=== PATIENT | female | born 1965 | race Two or more races ===

== ENCOUNTER → 2024-11-27 12:04 | Outpatient (AMB) | payer OTHER, SELFPAY ==
--- NOTE | 2024-11-27 12:34 | A.OFFVIS_ITS ---
VS Expanded 11/27/24 12:35 12/02/24 21:59 Height 5 ft 3 in 5 ft 3 in Weight 162 lb 4.163 oz 162 lb BMI 28.7 28.7 Intake Visit Reasons: Hypercholesterolemia Allergies oxycodone Adverse Reaction (Unknown, Verified 12/03/24 08:50) Unknown vicodin Adverse Reaction (Uncoded 12/03/24 08:50) Unknown Medication List - Last Reconciled 12/03/[address], LDN aspirin 81 mg PO DAILY cyanocobalamin (vitamin B-12) 100 mcg PO DAILY levothyroxine 75 mcg PO DAILY trazodone 50 mg PO BEDTIME PRN Nutrition Presentation Details: Pt presents for MNT for hypercholesterolemia Pt reports lack of meal routine, however working on reducing on high fat foods Pt reports allergic reaction to walnuts/pecans BS Monitoring Most Recent Diabetes Results: No Data to Display CXL-Sonjdlb-PuMichael Equation Height: 5 ft 3 in Weight: 162 lb Resting Metabolic Rate: 1278.01 Calculated Activity Level: Sedentary Calories Needed to Maintain Weight: 1533.61 Diagnosis Nutrition problem #1: altered nutrition labs As related to (etiology) #1: diagnosis As evidenced by (sign/symptom) #1: knowledge deficit of diet Assessment & Plan Assessment & Plan (1) Hypercholesteremia: Code(s): E78.00 - Pure hypercholesterolemia, unspecified Category: Medical Plan: Wt: 74 Kg ( 12/21 ) Est kcal needs as per MSJ: 1500 (40% carb, 30% protein/fat) Est fluid needs as per 25-30 ml/d: 2200 Est prot per day as per 1 g/kg bw: 70 Recommend fiber intake : 8-10 g per day and gradually increase to 25-28 g per day for women and 35-38 g for men or as tolerated Recommend sodium intake per day : less than 2000 mg Educated patient on: ( R = reviewed V = verbalizes understanding N/R = needs review N/A = not applicable * Food sources of carbohydrate, adequate serving sizes and its role in various health conditions: R V N/R * Differences between complex carbohydrates a simple carbohydrates, role of fiber in diet: R * Lean protein sources of foods: R V NR * Differences between types of fats and role in diet (mono on saturated fat fatty acids, saturated fatty acids, trans fats): R * Food sources of sodium in salt and healthy modifications for heart health in kidney health: R V R/V * Vitamins and minerals: R V N/R * Healthy plate method concept: R * Physical activity: Benefits a precaution: R V N/R * Patient Instructions: Wok on reducing saturated fats - see list of saturated fats vs unsaturated fats remove skins/visible fat from poultry/beef/pork - choose lean options Include fiber rich foods (salad/vegetables steamed /baked Coding Level of Care Code Nutr Indiv Intake (43870) Diagnoses Hypercholesteremia E78.00 Time Spent (min) 30
[2024-11-27 12:35] VITALS: BMI 28.7
[2024-12-03 08:51] VITALS: BMI 28.7
== END ==
LOC: HO.ENCR 12:05
PROVIDERS: PCP Physician Assistant Medical; Visit Provider Dietitian, Registered
DX: E78.00 Pure hypercholesterolemia, unspecified (principal)

== ENCOUNTER → 2024-11-27 12:04 | Outpatient (BNVA) | payer OTHER, SELFPAY | PROVIDERS: PCP Physician Assistant Medical; Visit Provider Dietitian, Registered | DX: E78.00 Pure hypercholesterolemia, unspecified (principal) | CPT/HCPCS: 97802 ==